=== PATIENT | female | born 1990 | race Caucasian/White ===

== ENCOUNTER 2021-03-27 01:39 | Inpatient (IN) | payer OTHER ==
[~2021-03-27] VITALS: Ht 168.9 cm; Wt 56.7 kg
[2021-03-27 03:54] LABS: BASOPHILS % 0.3 % (0.0-2.0); EOSINOPHILS % 0.3 % (0.0-5.0); HEMATOCRIT. 37.9 % (36.0-48.0); HEMOGLOBIN. 12.5 g/dL (12.0-16.0); LYMPHOCYTES % 8.7 % (20.0-50.0); MEAN CORPUSCULAR VOLUME 93.9 fL (81.0-99.0); MEAN PLATELET VOLUME 8.5 fl (7.4-10.4); MONOCYTES % 3.8 % (2.0-8.0); NEUTROPHILS % 86.9 % (40.0-76.0); PLATELET 250 x1000/uL (130-400); RED BLOOD CELL COUNT 4.04 mill/uL (4.2-5.4); RED CELL DISTRIBUTION WIDTH 12.5 % (11.6-14.6)
[2021-03-27 03:56] LABS: CHLORIDE 108 mEq/L (98-107)
[2021-03-27 04:21] LABS: B-HCG QUANTITATIVE 13278 mIU/mL (<3)
[2021-03-27] MEDS ORDERED: ACETAMINOPHEN 325MG TABLET PO ONE (05:15)
[2021-03-27 06:55] LABS: CLARITY URINE CLEAR (CLEAR); COLOR URINE YELLOW (YELLOW); KETONES URINE NEGATIVE (NEGATIVE); LEUKOCYTE ESTERASE URINE 1+ (NEGATIVE); NITRITE URINE POSITIVE (NEGATIVE); OCCULT BLOOD URINE NEGATIVE (NEGATIVE); PH URINE 6.5 (4.5-8.0); PROTEIN URINE NEGATIVE (NEGATIVE); SPECIFIC GRAVITY URINE 1.018 (1.005-1.030); UROBILINOGEN URINE 0.2 E.U./dL (0.2-1.0)
[2021-03-27] MEDS ORDERED: LACTATED RINGERS 1,000 ML IV STA (07:50)
[2021-03-27] MEDS ORDERED: MORPHINE SULFATE 2 MG/ML CPJ (NOT FOR IM USE) IV ONE (08:00)
[2021-03-28] MEDS ORDERED: LACTATED RINGERS 1,000 ML IV SCH (02:00)
[2021-03-28] MEDS ORDERED: CLINDAMYCIN 900 MG PREMIX 50 ML IV ONE (07:07)
[2021-03-28] MEDS ORDERED: PROPOFOL 200MG/20ML VIAL IV ONE (07:15)
[2021-03-28] MEDS ORDERED: ROCURONIUM BROMIDE 10MG/ML VIAL 5ML IV ONE (07:16)
[2021-03-28] MEDS ORDERED: MIDAZOLAM HCL 2 MG/2 ML VIAL ONE ×2 (07:16→08:29)
[2021-03-28] MEDS ORDERED: FENTANYL CITRATE/PF 50MCG/ML 2ML VIAL ONE ×2 (07:16→08:29)
[2021-03-28] MEDS ORDERED: LIDOCAINE HCL 1% 10 MG/ML 10ML VIAL ONE (07:16)
[2021-03-28] MEDS ORDERED: DEXAMETHASONE 4MG/ML 1ML VIAL ONE (07:19)
[2021-03-28] MEDS ORDERED: SODIUM CHLORIDE 0.9% 10ML VIAL ONE ×2 (07:21→07:23)
[2021-03-28] MEDS ORDERED: EPHEDRINE SULFATE 50MG/ML VIAL ONE (07:21)
[2021-03-28] MEDS ORDERED: PHENYLEPHRINE HCL 10 MG/ML 1ML (IV VIAL) IV ONE (07:23)
[2021-03-28] MEDS ORDERED: SUCCINYLCHOLINE CHLORIDE 200MG/10ML IV ONE (07:23)
[2021-03-28] MEDS ORDERED: ONDANSETRON HCL 4MG/2ML INJ ONE (07:59)
[2021-03-28] MEDS ORDERED: ONDANSETRON HCL 4MG/2ML INJ IV PRN ×2 (08:00→09:15)
[2021-03-28] MEDS ORDERED: METOCLOPRAMIDE HCL 10MG/2ML VIAL ONE (08:00)
[2021-03-28] MEDS ORDERED: HYDROMORPHONE HCL/PF 2MG/ML CPJ IV PRN (08:00)
[2021-03-28] MEDS ORDERED: GLYCOPYRROLATE 0.2 MG/ML 2ML VIAL ONE (08:01)
[2021-03-28] MEDS ORDERED: NEOSTIGMINE METHYLSULFATE 1MG/ML 10 ML VIAL ONE (08:01)
[2021-03-28] MEDS ORDERED: KETOROLAC 30MG/ML VIAL ONE (08:04)
[2021-03-28] MEDS ORDERED: HYDROMORPHONE HCL/PF 2MG/ML CPJ ONE (09:00)
[2021-03-28] MEDS ORDERED: NALOXONE HCL 0.4MG/ML VIAL IV PRN (09:15)
[2021-03-28] MEDS ORDERED: MORPHINE SULFATE 4 MG/ML CPJ (NOT FOR IM USE) IV PRN (09:15)
[2021-03-28 12:00] VITALS: BP_SYST 94; BP_SYST 97; BP_DIAS 48; BP_DIAS 49
[2021-03-28] MEDS: ACETAMINOPHEN WITH CODEINE 300/30MG TABLET PO PRN (14:40)
[2021-03-28] MEDS: LACTATED RINGERS 1,000 ML IV SCH ×2 (15:55→23:31)
[2021-03-28 16:00] VITALS: BP 95/55
[2021-03-28 20:00] VITALS: BP 107/58
[2021-03-28] MEDS: MORPHINE SULFATE 2 MG/ML CPJ (NOT FOR IM USE) IV PRN (23:31)
[2021-03-29] VITALS: BP 89/46
[2021-03-29 04:00] VITALS: BP 98/61
[2021-03-29] MEDS: MORPHINE SULFATE 2 MG/ML CPJ (NOT FOR IM USE) IV PRN (05:34)
[2021-03-29] MEDS: LACTATED RINGERS 1,000 ML IV SCH ×3 (06:35→18:49)
[2021-03-29] MEDS: ACETAMINOPHEN WITH CODEINE 300/30MG TABLET PO PRN ×2 (09:05→19:56)
[2021-03-29 12:00] VITALS: BP 99/64
[2021-03-29] MEDS: ACETAMINOPHEN 325MG TABLET PO PRN (13:29)
[2021-03-29 16:00] VITALS: BP 90/55
[2021-03-29 20:00] VITALS: BP 99/54
[2021-03-29 23:39] LABS: BASOPHILS % 0.8 % (0.0-2.0); HEMATOCRIT. 28.5 % (36.0-48.0); HEMOGLOBIN. 10.1 g/dL (12.0-16.0); LYMPHOCYTES % 35.7 % (20.0-50.0); MEAN CORPUSCULAR HEMOGLOBIN 33.4 pg (28.0-32.0); MEAN CORPUSCULAR VOLUME 94.5 fL (81.0-99.0); MEAN PLATELET VOLUME 8.9 fl (7.4-10.4); MONOCYTES % 8.6 % (2.0-8.0); NEUTROPHILS % 53.9 % (40.0-76.0); PLATELET 169 x1000/uL (130-400); RED BLOOD CELL COUNT 3.01 mill/uL (4.2-5.4); RED CELL DISTRIBUTION WIDTH 12.7 % (11.6-14.6)
[2021-03-30] VITALS: BP 104/60
[2021-03-30] MEDS: LACTATED RINGERS 1,000 ML IV SCH ×2 (00:52→06:55)
[2021-03-30] MEDS: ACETAMINOPHEN WITH CODEINE 300/30MG TABLET PO PRN ×2 (01:45→10:23)
[2021-03-30] MEDS ORDERED: LACTATED RINGERS 1,000 ML IV SCH (02:00)
[2021-03-30 04:00] VITALS: BP 91/53
[2021-03-30 08:00] VITALS: BP 101/58
[2021-03-30] MEDS ORDERED: DOCUSATE SODIUM 100MG CAPSULE PO SCH (11:15)
[2021-03-30 12:00] VITALS: BP 99/54
[2021-03-30] MEDS ORDERED: IBUP-2030 MT (13:09)
[2021-03-30] MEDS ORDERED: DOCU-150 PO (13:09)
[2021-03-30 14:57] VITALS: BP 99/54
[2021-03-30] MEDS: ACETAMINOPHEN 325MG TABLET PO PRN (15:17)
== END 2021-03-30 15:41 | disposition home or self-care (01) | DRG 817 ==
LOC: ER 01:39 → EDBEDREQ 09:48 → EDBEDREQTM 10:06 → SUPCPDRO 17:47 → MICUSO 03-28 02:28 → 6EST 03-28 11:38
PROVIDERS: ADMIT Obstetrics & Gynecology; ATTEND Obstetrics & Gynecology
PROC: 10T20ZZ Resection of Products of Conception, Ectopic, Open Approach (ICD-10-PCS; principal; 2021-03-28)
PROC: 0UB50ZZ Excision of Right Fallopian Tube, Open Approach (ICD-10-PCS; 2021-03-28)
DX: O00.91 Unspecified ectopic pregnancy with intrauterine pregnancy (principal); K66.1 Hemoperitoneum; O08.89 Other complications following an ectopic and molar pregnancy; D64.9 Anemia, unspecified; Z20.822 Contact with and (suspected) exposure to COVID-19; Z3A.01 Less than 8 weeks gestation of pregnancy
CPT/HCPCS: 36415; 76801; 80053; 81003; 82542; 84702; 85025; 86850; 86900; 87426; 88302; 93005; 99291; C1893; J0330; J1100; J1170; J1885; J2250; J2270; J2370; J2405; J2704; J2710; J2765; J3010; J3490; J7120